=== PATIENT | female | born 1960 | race Two or more races ===

== ENCOUNTER 2024-12-05 06:59 | Day surgery (SDC) | payer MEDICAID ==
[~2024-12-05] VITALS: Ht 172.7 cm; Wt 108.4 kg
[~2024-12-05 06:59] MED LIST: ASPI-543 PO; BUPR-239 PO; CHOL200064 PO; LISI-285 PO; OMEP-434 PO
[2024-12-05] MEDS ORDERED: IOHEXOL 350 MG/ML 100ML IJ ONE (07:19)
[2024-12-05] MEDS ORDERED: VERAPAMIL 2.5MG/ML INJ 2ML VIAL IV ONE (08:32)
[2024-12-05] MEDS ORDERED: ANGIOMAX 250 MG VIAL IV ONE (08:32)
[2024-12-05] MEDS ORDERED: HEPARIN SODIUM (PORCINE) 5000 UNITS/ML 1ML VIAL ONE (08:32)
[2024-12-05] MEDS ORDERED: fentaNYL CITRATE 100 MCG/2 ML VL ONE (08:33)
[2024-12-05] MEDS ORDERED: SODIUM CHL 0.9% 0 ML ONE (08:33)
[2024-12-05] MEDS ORDERED: MIDAZOLAM HCL 2MG/2ML 2ml VIAL (1mg/ml) ONE (08:33)
[2024-12-05] MEDS ORDERED: LIDOCAINE 2%HCL (LOCAL ANESTH.) INJ 20ML MDV ONE (08:34)
--- NOTE | 2024-12-05 09:37 | DVHOP2 ---
Operative Report Procedures performed: Left heart catheterization and bilateral coronary angiogram Moderate sedation Diagnosis: No angiographic evidence for epicardial coronary artery disease (normal coronaries) LVEF of 55% with normal EDP Cardiac suggestion for management: Optimized medical therapy Lifestyle and risk factor modifications Findings: LVEF: 55% LVEDP: 11 mm Hg There was no transaortic valve pressure gradient Left main: Left main was coming off the left sinus of Valsalva. It was free of disease. LAD: LAD was coming off the left main. It provided usual numbers of diagonals and septals. LAD throughout its course and branches was free of disease. Ramus intermedius: Ramus intermedius was a large caliber vessel which came off the left main. It was free of disease. LCX: LCX was coming off the left main. It was a medium-sized vessel which provided small-sized obtuse marginals. It was free of disease throughout its course and branches. RCA: RCA was coming off the right sinus of Valsalva. It was the dominant vessel and provided RPDA. RCA throughout its course and branches was free of disease. Presentation: Patient is a 64-year-old female who presented to the office with chest pain and dyspnea on exertion. Past medical history includes hypertension, obesity and prediabetes. Echocardiogram of July 2024 revealed ejection fraction of 65-70%, mild concentric left ventricular hypertrophy, mild left atrial enlargement, mild aortic insufficiency/tricuspid regurgitation/pulmonary insufficiency/mitral regurgitation. Right ventricular systolic pressure was normal at 30 mm Hg. Nuclear stress test of July 2024 was abnormal and the patient was sent for cardiac catheterization. Procedure: After obtaining informed consent, the patient was brought to the [facility] [employer] [facility]. She was prepped and draped in sterile fashion. Right radial artery was used for access site. 2 mg of Versed and 100 mcg of fentanyl were used for moderate sedation. Using Seldinger technique, the right radial artery was accessed and a 6 [place]ian slender sheath was inserted into it. 2.5 mg of verapamil and 100 mcg of nitroglycerin were given as a cocktail into right radial sheath. 5000 units of heparin was given peripherally. A 5 Slovenian tiger 4 diagnostic catheter was used to perform left heart catheterization (obtaining pressures and performing left ventriculography) and right coronary angiography. A 6 [place]ian JL 3.5 diagnostic catheter was used to perform left coronary angiography. There was no dissection/hematoma/perforation. Patient tolerated the procedure with no complication. It is of note that the patient had some right radial artery spasm at the end of the procedure and received 100 mcg of nitroglycerin into the right radial sheath prior to its removal. Right radial sheath was managed by deploying a TR band. Total bleeding was less than 10 mL. Fluoroscopy time: 4.8 minutes contrast: 25 mL of Omnipaque TOPHER GIL MD Dec 05, 2024 09:37
== END 2024-12-05 11:50 | disposition home or self-care (01) ==
LOC: CATH 06:59
PROVIDERS: ATTEND Internal Medicine Cardiovascular Disease
DX: R07.9 Chest pain, unspecified (principal); R06.02 Shortness of breath; I11.9 Hypertensive heart disease without heart failure; I08.3 Combined rheumatic disorders of mitral, aortic and tricuspid valves; E66.9 Obesity, unspecified; J98.4 Other disorders of lung; R06.09 Other forms of dyspnea; Z79.899 Other long term (current) drug therapy; Z98.890 Other specified postprocedural states
CPT/HCPCS: 93458; C1769; C1894; J1644; J2250; J3010; J7030; Q9967; 99152